=== PATIENT | male | born 1990 | race Caucasian/White ===

== ENCOUNTER 2018-07-10 11:03 | Emergency (ER) | payer SELFPAY ==
[~2018-07-10] VITALS: Ht 165.1 cm; Wt 77.1 kg
[2018-07-10 11:06] VITALS: BP_SYST 148
[2018-07-10 11:28] VITALS: BP_SYST 142
== END 2018-07-10 11:28 ==
LOC: SED 11:03
DX: S60.212A Contusion of left wrist, initial encounter (principal); X58.XXXA Exposure to other specified factors, initial encounter; Y93.89 Activity, other specified; Y92.89 Other specified places as the place of occurrence of the external cause; Y99.8 Other external cause status
CPT/HCPCS: 99283